=== PATIENT | female | born 1980 | race Two or more races ===

== ENCOUNTER 2019-09-13 14:53 | Emergency (ER) | payer OTHER ==
[~2019-09-13] VITALS: Ht 162.6 cm; Wt 63.5 kg
[2019-09-13 15:05] VITALS: BP_SYST 134
--- NOTE | 2019-09-15 15:05 | NUR ---
Patient triaged and placed in waiting room. VSS and patient appears in no acute distress at this time. Accompanied by family, awaiting available bed, and MD notified of need for MSE.
--- NOTE | 2019-09-15 15:10 | NUR ---
Pt states she wants to go home, states she feels better
== END 2019-09-13 15:29 | disposition left against medical advice (07) ==
LOC: SED 14:53
DX: R42 Dizziness and giddiness (principal); Z53.21 Procedure and treatment not carried out due to patient leaving prior to being seen by health care provider